=== PATIENT | female | born 1960 | race Caucasian/White ===

== ENCOUNTER → 2016-12-09 | Outpatient (CLI) | payer BC, OTHER ==
[~2016-12-09] VITALS: Ht 172.7 cm; Wt 57.6 kg
[~2016-12-09] MED LIST: ALEVE220 MG PO; CELEBREX 200 M200 MG PO; ESTRING1 EACH VG; GABAPENTIN100 MG PO; HYDROCODONE-AP1 EAC6 PO; LEVOTHYROXIN0.175 MG PO; LIDODERM 5%1 PATC1 TRANSDERM; METHADONE HCL5 MG PO; NEURONTIN 300300 M1 PO; NEURONTIN600 MG PO; NORCO 5-325 TA1 EACH PO; PENNSAID112 GM TP; TERBINAFINE HC250 MG PO
--- NOTE | ~2016-12-09 | HPC ---
[facility] [address] [place] [address] PAIN MANAGEMENT CONSULTATION Name: ANNEMARIE BARDALES Room #: REG RAJI Trammell#: [id number] Admission: 12/09/16 Attend Phys: Wolfgang Miller MD Discharge: Date of : 56 Report #: [id number] THIS REPORT FOR: //name// CC: Annemarie Bucio STACIE Miller DATE OF REGISTRATION: 12/09/2016. Followup visit for bilateral foot pain. HISTORY OF PRESENT ILLNESS: The patient returns to pain clinic today and was really unhappy that she felt that I did not taking her complaints of pain seriously at her last visit. I had indeed felt that her pain was fairly well controlled with some of her medicines. We had adjusted both her gabapentin and offered new medications Celebrex. She says the pain is now really affecting her. She has trouble going out and is becoming more and more withdrawn. She is asking for more aggressive treatments and what they may have to offer her. I spent 15 minutes today discussing spinal cord stimulation intrathecal pump. She certainly wants to avoid any distal surgery, which really probably, compounded or her increased her current pain. We discussed injections as possibility she has had multiple injections without response. I do not think this is in a position where peripheral nerve stimulation is even worth a consideration. She might be a candidate down the line for stem cell therapy if we can perfect that treatment down side risk that is quite low. We will discuss this further with my partner, Dr. Reeves and we are pursuing educational opportunities in this field. PHYSICAL EXAMINATION: GENERAL: She is tearful, angry and depressed. VITAL SIGNS: Blood pressure is 198/52, heart rate 68, respirations 14. EXTREMITIES: She works wearing articulating AFO on the right foot. Examination of the feet reveals a 5 inch scar along the plantar surface with tightness and scar tissue within the plantar fascia. There is tenderness overlying a dorsal scar as well and localized tenderness overlying the metatarsal phalangeal joint between the first and second toe. Review of the palpable mass, there was to scar tissue, which may be contributing to an inner digital nerve neuroma. IMPRESSION: 1. Chronic intractable foot pain related to neuropathy and a neuroma formation following multiple foot surgeries. 2. Management of high risk medication. After long discussion today, they have agreed to try her on methadone, which we have found helpful for many patients with neuropathic features. Examples of patient's with atypical facial pain with trigeminal neuralgia, postherpetic [address] [address] PAIN MANAGEMENT CONSULTATION Name: ANNEMARIE BARDALES Room #: REG [facility] Valeri#: [id number] Admission: 12/09/16 Attend Phys: Wolfgang Miller MD Discharge: Date of : 56 Report #: [id number] neuralgia as well as phantom limb pain, they were doing quite well on methadone at low dose. RECOMMENDATIONS: We will start the medication at 2.5 mg t.i.d. She can gradually that dose upwards by 2.5 mg per day every 3 days to a maximum of 5 mg t.i.d. before I see her back in the clinic in 2-3 weeks. We will consider injections at that time. Questions were answered, time spent with the patient 25 minutes. <ELECTRONICALLY SIGNED> By: Wolfgang Miller MD 12/09/16 1714 [id number] [id number] Wolfgang Miller MD /nt
[2016-12-09 12:28] VITALS: BP 98/52
== END | disposition home or self-care (01) ==
LOC: PAIN 07:00
DX: D36.13 Benign neoplasm of peripheral nerves and autonomic nervous system of lower limb, including hip (principal); M25.571 Pain in right ankle and joints of right foot; M25.572 Pain in left ankle and joints of left foot; G89.29 Other chronic pain; F11.20 Opioid dependence, uncomplicated; Z98.890 Other specified postprocedural states; Z88.1 Allergy status to other antibiotic agents

== ENCOUNTER → 2017-01-05 | Outpatient (CLI) | payer BC, OTHER ==
[~2017-01-05] VITALS: Ht 165.1 cm; Wt 57.6 kg
[2017-01-05 14:32] VITALS: BP 101/60
== END ==
LOC: PAIN 07:14
DX: Z76.0 Encounter for issue of repeat prescription (principal); M79.673 Pain in unspecified foot; M79.2 Neuralgia and neuritis, unspecified

== ENCOUNTER → 2017-02-28 | Outpatient (CLI) | payer BC, OTHER | LOC: PAIN 07:12 | DX: M79.672 Pain in left foot (principal); M79.671 Pain in right foot ==

== ENCOUNTER → 2017-06-06 | Outpatient (CLI) | payer BC, OTHER ==
[~2017-06-06] VITALS: Ht 165.1 cm; Wt 58.5 kg
--- NOTE | ~2017-06-06 | HPC ---
[facility] [place] [address] [place] [address] PAIN MANAGEMENT CONSULTATION Name: ANNEMARIE BARDALES Room #: REG RAJI Trammell#: [id number] Admission: 06/06/17 Attend Phys: Wolfgang Miller MD Discharge: Date of : 56 Report #: [id number] THIS REPORT FOR: //name// CC: Annemarie Bucio STACIE Miller DATE OF SERVICE: 06/06/2017 DATE OF REGISTRATION: 06/06/2017 Followup visit for chronic intractable foot pain. The patient returns to pain clinic today for renewal of her methadone. She has now been on methadone through our clinic since December. At that time, she was in a bit of crisis. We began titrated the dose upwards. Her current daily dose of methadone is 5 mg tablets taken 4 times daily. She generally takes 5 mg in the morning and noon and 10 mg in the evening. In addition, she is on gabapentin and I have allowed her to take 2 hydrocodone 5/325 per day for breakthrough pain under terms of our written opioid agreement. Today, I discussed the CDC guideline and she is currently on 90 morphine mg equivalents per day right at the opioid upper limit recommendation. She has recently undergone a buccal drug screen which was positive for methadone, gabapentin and hydrocodone 3 drugs are prescribed. There were no unusual findings. She is on time for all her visits. She safeguards her medication. She and her fiance of many years are planning on getting . She had some questions about some upcoming cosmetic surgery that she intends to have and I told her that I would supplement her current medication with a small amount of additional medicine to get her through surgery. This should be for no more than 3-7 days. She should continue her medication through surgery and we did discuss the possibility of the taper of her methadone even a few days before surgery by 25%-50% can have a very positive return on her postoperative pain. I gave her some instructions on how to do that. PHYSICAL EXAMINATION: She is pleasant, alert and oriented. Her blood pressure is 111/59, heart rate 67, BMI of 21.5. Her pain score is at 3/5. She wears bilateral AFO on the foot inside of her shoe to provide support. She has localized discomfort. IMPRESSION: 1. Chronic foot pain with peripheral neuropathy, status post multiple surgeries. 2. Management of high risk medication. [address] [address] PAIN MANAGEMENT CONSULTATION Name: ANNEMARIE BARDALES Room #: REG RAJI Trammell#: [id number] Admission: 06/06/17 Attend Phys: Wolfgang Miller MD Discharge: Date of : 56 Report #: [id number] PLAN: 1. Continue methadone 20 mg daily and hydrocodone 10 mg daily for breakthrough. 2. Review of opioid issues including addiction and dependence, the opioid crisis in the [place], CDC guidelines and our opioid agreement. 3. The patient had questions for her father who is concerned about her methadone wanted to know how long it would take for her to go off if she ever had to. We discussed that this could happen, although it will be a challenge, particularly in light of the fact that we would need another way to manage her pain, which has been so resistant over the years. I will continue to see her at 3-month intervals. By: [id number] Wolfgang Miller MD /nt
[2017-06-06 12:37] VITALS: BP 111/59
== END ==
LOC: PAIN 06:54
DX: M79.673 Pain in unspecified foot (principal); G62.9 Polyneuropathy, unspecified; Z98.890 Other specified postprocedural states; Z79.899 Other long term (current) drug therapy

== ENCOUNTER → 2017-09-08 | Outpatient (CLI) | payer OTHER ==
[~2017-09-08] VITALS: Ht 165.1 cm; Wt 58.2 kg
[~2017-09-08] MED LIST changes: +SYNTHROID175 MCG PO; +XANAX 0.25 MG0.25 MG PO
--- NOTE | ~2017-09-08 | HPC ---
[facility] [place] [place] [address] PAIN MANAGEMENT CONSULTATION Name: ANNEMARIE BARDALES Room #: REG RAJI Hooper.#: [id number] Admission: 09/08/17 Attend Phys: Wolfgang Miller MD Discharge: Date of : 56 Report #: [id number] THIS REPORT FOR: //name// CC: Annemarie Bucio STACIE Miller DATE OF SERVICE: 09/08/2017 Followup visit for intractable foot pain. The patient returns to pain clinic today doing well. She is currently on methadone taking four 5 mg tablets per day for a total of 20 mg. The use of an additional two 5 mg hydrocodone tablets per day for breakthrough pain will equate to a total of 90 morphine milligram equivalents. Again today, we reviewed the CDC guidelines. We reviewed her pain medication use and responsibilities under terms of our written agreement. I reviewed her buccal drug screen, which was last performed on 01/05/2017. A new drug screen will be performed within the year. Right now she is doing well. Her life is stable. She is getting soon to a long time partner. Her blood pressure is 107/66, heart rate 67, respirations 14. BMI is 21.3. She seems upbeat and positive. No evidence of depression. Her functional assessment tool is 18/70 showing a significant improvement over her initial presentation to the clinic. When I first saw her in 2013, her scores were in the range of 40-50. PHYSICAL EXAMINATION: She wears her articulating ankle braces. She walks with some antalgic features. IMPRESSION: 1. Chronic foot pain status post multiple surgeries with severe peripheral neuropathy. 2. Management of high risk medication under terms of written opioid agreement. Followup visit planned in my clinic in 3 months. <ELECTRONICALLY SIGNED> By: Wolfgang Miller MD 10/10/17 1408 1502 [id number] Wolfgang Miller MD /nt
[2017-09-08 14:21] VITALS: BP 107/66
== END ==
LOC: PAIN 09-05 09:10
DX: M79.673 Pain in unspecified foot (principal); G89.29 Other chronic pain; Z79.899 Other long term (current) drug therapy

== ENCOUNTER → 2017-12-15 | Outpatient (CLI) | payer OTHER ==
[~2017-12-15] VITALS: Ht 165.1 cm; Wt 57.0 kg
[~2017-12-15] MED LIST changes: -SYNTHROID175 MCG PO; -XANAX 0.25 MG0.25 MG PO
--- NOTE | ~2017-12-15 | HPC ---
[facility] [address] [place] [address] PAIN MANAGEMENT CONSULTATION Name: ANNEMARIE BARDALES Room #: REG RAJI Hooper.#: [id number] Admission: 12/15/17 Attend Phys: Wolfgang Miller MD Discharge: Date of : 56 Report #: [id number] THIS REPORT FOR: //name// CC: Annemarie Bucio Wolfgang Miller DATE OF SERVICE: 12/15/2017 Followup visit for management of chronic intractable foot pain with severe peripheral neuropathy. The patient is doing well. A year ago or more, we started her on methadone and she is currently taking 5 mg 4 times daily, 1 in the morning, 2 in the midday and one in the evening. With this, her pain is nicely controlled. She has no significant side effects. She is substantially better since we placed her on methadone and she has shown no misuse or abuse of medication. Her pain intensity is 3/10. She continues to work and has been able to do so much more effectively. She reports to me that prior to starting on methadone, she was self-medicating at the end of the day with alcohol because her pain was so severe. She is completely given up the use of alcohol as an analgesic, although she occasionally drinks socially. She is grateful for this. I had her complete the risk assessment tool and she is at low risk of addiction, although she was clearly concerned about the required need for self-medication prior to establishing methadone. She recently , in fact just 4 days ago. Now, she and her have blended family. She seems very happy. We completed a buccal drug screen within the last 12 months. No further testing is necessary. PHYSICAL EXAMINATION: GENERAL: Attractive female. VITAL SIGNS: Blood pressure is 107/66, heart rate 67. She is 5 feet 5 inches, 128 pounds with a BMI of 21.3. MUSCULOSKELETAL: She is wearing articulating AFO on the left foot. Both feet are tender to touch. Hyperalgesia is mild, given her pain score of 3/10. IMPRESSION: 1. Chronic foot pain status post multiple surgeries with severe peripheral neuropathy. 2. Management of high risk medication under terms of written opioid agreement. She is quite stable on her current dose of methadone at 20 mg per day. I will [facility] [address] [place] [address] PAIN MANAGEMENT CONSULTATION Name: ANNEMARIE BARDALES Room #: REG [facility].#: [id number] Admission: 12/15/17 Attend Phys: Wolfgang Miller MD Discharge: Date of : 56 Report #: [id number] allow her to utilize 2 hydrocodone 5/325 tablets for breakthrough and she continues on gabapentin 600 mg 4 times daily for a total of 2400 mg. She denies any significant side effects. Feels that her pain is well managed. I reviewed the CDC guidelines with her, the history of the drug crisis in [facility]. We talked about the difference between addiction and dependence and we discussed withdrawal. I calculated her MME using 4:1 for methadone and that does take her up pretty quickly to an MME per day of 90. It is my belief as well as the belief of other pain specialist that methadone when taking chronically is closer to 1:1 with morphine. I would equate her current dose to be closer to 30-40 MME per day. We discussed the challenges in finding prescribers at high dose opioids should our clinic not be able to provide that for her in the future. We will make efforts to titrate the lowest effective dose. Multiple questions were answered today. Total visit time 25 minutes. By: [id number] Wolfgang Miller MD /nt
[2017-12-15 10:11] VITALS: BP 121/64
== END ==
LOC: PAIN 06:46
DX: G62.9 Polyneuropathy, unspecified (principal); G89.4 Chronic pain syndrome; M79.671 Pain in right foot; Z79.891 Long term (current) use of opiate analgesic

== ENCOUNTER → 2018-05-29 | Outpatient (CLI) | payer OTHER ==
[~2018-05-29] VITALS: Ht 165.1 cm; Wt 59.0 kg
[~2018-05-29] MED LIST changes: +SYNTHROID175 MCG PO; +XANAX 0.25 MG0.25 MG PO
--- NOTE | ~2018-05-29 | HPC ---
[facility] [place] [address] PAIN MANAGEMENT CONSULTATION Name: BARDALESANNEMARIE MOSCOSO Room #: REG RAJI Hooper.#: [id number] Admission: 05/29/18 Attend Phys: Wolfgang Miller MD Discharge: Date of : 56 Report #: [id number] THIS REPORT FOR: //name// CC: Annemarie Bucio STACIE Miller DATE OF SERVICE: 05/29/2018 Followup visit for management of chronic intractable pain with opioid medication. The patient returns to pain clinic today for medication renewal. She is doing well on methadone 5 mg 2 tablets in morning, 1 at noon and 1 in the evening for a total of 20 mg. In addition, she uses hydrocodone 5/325. She denies any significant side effects. She has had a significant improvement in her quality of life since we started her on this medication. She is able to function very well without side effects. She still says pain is worse when she is walking on concrete. She continuously wears her articulating AFO. We discussed her MME. We now use 3:1 to calculate methadone, which drops her MME to 70 simply by calculation. We will not make any changes in her current medication. PHYSICAL EXAMINATION: She is pleasant and oriented. No signs of anxiety, depression or overmedication. Blood pressure today is 115/80, heart rate is 65. She has a BMI of 21. Bilateral foot tenderness overlying the scars from previous surgery. She is wearing a left-sided ankle foot orthotic. Her gait is antalgic. IMPRESSION: 1. Chronic foot pain status post multiple surgeries with peripheral neuropathy. 2. Management of opioid medications under terms of written opioid agreement. We reviewed the fact that opiate medications are being used to provide analgesia adequate to support activities of daily living, not attempting to achieve a specific pain score on the 0-10 Visual Analog Scale. The current opiate medications are providing sufficient analgesia to allow the patient to participate in activities of daily living. The patient is not exhibiting any aberrant behavior suggestive of drug diversion. The patient is not having any adverse reactions to medications. The patient is not suffering from daytime somnolence or mental acuity changes. The patient is managing opiate-induced constipation with appropriate leux-ene-kmuuava agents and dietary considerations. The patient was counseled on concern for caution with operating [address] [address] PAIN MANAGEMENT CONSULTATION Name: ANNEMARIE BARDALES Room #: REG [facility] Rufus.#: [id number] Admission: 05/29/18 Attend Phys: Wolfgang Miller MD Discharge: Date of : 56 Report #: [id number] a motor vehicle while using opiate medications. A physical exam was performed and the patient's functional status was evaluated. All patients with back pain were advised against the bed rest greater than 4 days and were advised to return to normal activities. Pain score assessment was noted and the treatment plan was reviewed with the patient. All current medications, both prescribed and OTC were reviewed and reconciled on the electronic medical record. Tobacco screening was accomplished and smoking cessation was advised when indicated. BMI was noted and diet/exercise modification was recommended for all patients following outside normal parameters. I reviewed with the patient today their responsibilities to safeguard prescription medications, reviewed their responsibility to utilize medications only as prescribed by the physician. They are to seek and receive pain medications only from 1 physician group ( [facility]). They are to use 1 pharmacy and keep the clinic informed if they change pharmacies. Their responsibilities include making followup visits in a timely fashion and to avoid abrupt discontinuation of medication usage. Their responsibilities further include bringing their medications (bottles from the pharmacy with residual pills) to the visit for possible confirmation of pill counts and the patient understands it is their responsibility to submit to random drug screens to ensure both that the medications prescribed are present, and that no other controlled substances are present. All prescriptions provided today were generated electronically. By: [id number] Wolfgang Miller MD /nt
[2018-05-29 14:23] VITALS: BP 105/47
== END ==
LOC: PAIN 00:35
DX: G89.4 Chronic pain syndrome (principal); M79.671 Pain in right foot; M79.672 Pain in left foot; G62.9 Polyneuropathy, unspecified; Z79.891 Long term (current) use of opiate analgesic

== ENCOUNTER → 2018-08-14 | Outpatient (CLI) | payer OTHER ==
[~2018-08-14] VITALS: Ht 165.1 cm; Wt 60.3 kg
[2018-08-14 12:32] VITALS: BP 99/48
--- NOTE | 2018-08-14 12:38 | NUR ---
Pain Clinic Assessment: 1. History of Osteoarthritis: Not Applicable History of Rheumatoid Arthritis: Not Applicable 2. Height: 5 ft. 5 in. 165.1 cm. Weight: 133.0 lb. oz. 60.328 kg. Patient's BMI: 22.1 3. Vital Signs: BP: 99/48 Pulse: 70 Resp: 12 Temp: 02 Sat: 97 ECG Mon: 4. Pain Intensity: 5-6 5. Fall Risk: Dizziness: N Needs help standing or walking: N Fallen in the last 3 months: N Fall risk comments: 6. Patient on Blood Thinner: None 7. History of Hypertension: N 8. Opioid Therapy greater than 6 weeks: Y Opiate Contract Signed: 09/08/17 9. Risk Assessment Tool Provided: low risk 10. Functional Assessment Tool: 11. Recreational Drug Use: Never Drug Type: Tobacco Use: Never Smoker Tobacco Type: Amount or Packs/day: How Many Years: Alcohol Use: Yes Frequency: Weekly Quant: WEEKEND
--- NOTE | 2018-08-15 07:17 | HPC ---
[facility] [address] [place] [address] PAIN MANAGEMENT CONSULTATION Name: BARDALESANNEMARIE CALDWELL Room #: REG RAJI Hooper.#: [id number] Admission: 08/14/18 Attend Phys: Juliette Ruiz Discharge: Date of : 56 Report #: [id number] THIS REPORT FOR: //name// CC: Juliette Ruiz Annemarie Bucio DATE OF SERVICE: 08/14/2018 CHIEF COMPLAINT: Chronic intractable pain in her bilateral feet. HISTORY OF PRESENT ILLNESS: The patient returns to the pain clinic today for medication renewal. She has done well on her current methadone dose for her bilateral foot pain. She takes 1 pill in the morning, 1 pill at midday and 2 tablets at bedtime of her methadone 5 mg tablets. She also takes hydrocodone about 2 times a day. She tells me that she has worse pain with walking on concrete especially if it is cold. She has sharp pain. She had 1 episode last week that her pain was so bad it brought her to her knees she tells me. Her average pain score is 5/6. She tells me she does not have any problems with constipation or daytime sleepiness. She would like a refill of her medications today. ALLERGIES: TETRACYCLINE. CURRENT LIST OF MEDICATIONS: Methadone 5 mg up to 4 tablets a day, hydrocodone 5/325 twice a day, gabapentin 600 mg 4 times a day, Xanax 0.25 daily, thyroid medicine 175 mcg a day. PQRS: 1. She does not have a history of rheumatoid or osteoarthritis. 2. Height is 5 feet 5 inches, weight is 133, BMI is 22. 3. Vital Signs: Blood pressure 99/48, pulse is 70, respirations 19, oxygen sat is 97%. 4. Pain score is 5-6/10. 5. Fall risk: Denies dizziness, does not need help walking or standing, has not fallen in the last 3 months. 6. The patient is not on any blood thinners and she does not take any hypertension medicines. 7. Opioid therapy is greater than 6 weeks, therefore, an opioid signed contract is on the chart. 8. Her risk assessment tool is low. Her functional assessment is 18/70. 9. Recreational drug use she denies. She is not a smoker and occasionally drinks alcohol. We did check the prescription monitoring system on this patient. She is filling appropriately from Dr. Wolfgang Miller. The patient also has a urine drug screen on the chart, though it is more than a year old, so we will recheck that drug screen again today. [address] [address] PAIN MANAGEMENT CONSULTATION Name: ANNEMARIE BARDALES [facility] [id number] Admission: 08/14/18 Attend Phys: Juliette Ruiz Discharge: Date of : 56 Report #: [id number] PHYSICAL EXAMINATION: GENERAL: This is a pleasant 57-year-old female who is well nourished. She appears her stated age. She is alert and orientated and her affect is appropriate. HEENT: Normocephalic, atraumatic. Extraocular eye muscles are intact. Mucous membranes are moist. Her hearing is adequate. MUSCULOSKELETAL: Walks with an antalgic gait. She has bilateral foot tenderness. She does wear a left-sided ankle foot orthotic today. Her general muscle strength in her lower extremities is judged to be 5/5 in all of her major muscle groups. ASSESSMENT: 1. Chronic foot pain status post multiple surgeries with peripheral neuropathy. 2. Management of opioid medicines under terms of written opioid agreement. We reviewed the fact that opiate medications are being used to provide analgesia adequate to support activities of daily living, not attempting to achieve a specific pain score on the 0-10 Visual Analog Scale. The current opiate medications are providing sufficient analgesia to allow the patient to participate in activities of daily living. The patient is not exhibiting any aberrant behavior suggestive of drug diversion. The patient is not having any adverse reactions to medications. The patient is not suffering from daytime somnolence or mental acuity changes. The patient is managing opiate-induced constipation with appropriate xsjw-bdl-qidtrqe agents and dietary considerations. The patient was counseled on concern for caution with operating a motor vehicle while using opiate medications. A physical exam was performed and the patient's functional status was evaluated. All patients with back pain were advised against the bed rest greater than 4 days and were advised to return to normal activities. Pain score assessment was noted and the treatment plan was reviewed with the patient. All current medications, both prescribed and OTC were reviewed and reconciled on the electronic medical record. Tobacco screening was accomplished and smoking cessation was advised when indicated. BMI was noted and diet/exercise modification was recommended for all patients following outside normal parameters. I reviewed with the patient today their responsibilities to safeguard prescription medications, reviewed their responsibility to utilize medications only as prescribed by the physician. They are to seek and receive pain medications only from 1 physician group ([facility]). They are to use 1 pharmacy and keep the clinic informed if they change pharmacies. Their responsibilities include making followup visits in a timely fashion and to avoid abrupt discontinuation of medication usage. Their responsibilities further include bringing their medications (bottles from the pharmacy with residual pills) to the visit for possible confirmation of pill counts and the patient [address] [address] PAIN MANAGEMENT CONSULTATION Name: ANNEMARIE BARDALES Room #: REG RAJI Hooper#: [id number] Admission: 08/14/18 Attend Phys: Juliette Ruiz Discharge: Date of : 56 Report #: [id number] understands it is their responsibility to submit to random drug screens to ensure both that the medications prescribed are present, and that no other controlled substances are present. All prescriptions provided today were generated electronically. PLAN: 1. We discussed treatment options with the patient today. Her current MME dose per the CDC guidelines his 70. We did not make any changes in her medications today, so she will continue at that level. Therefore, due to the clinic guidelines, we will give her 3 months of medications. Scripts given today for methadone 5 mg, quantity 120, for release today, 4 and 8-week. Second medication is hydrocodone 5/325 b.i.d., #60 for release today, 4-week and 8-week. Final medication, gabapentin 600 mg 4 times a day, #120, with 2 additional refills. 2. The patient submitted a urine drug screen today since it had been more than a year since her last sample was checked randomly. The patient was seen in collaboration today with Dr. Wolfgang Miller. <ELECTRONICALLY SIGNED> By: Juliette Ruiz 08/15/18 0717 1319 [id number] Juliette Ruiz /nt
== END ==
LOC: PAIN 07:14
DX: M79.672 Pain in left foot (principal); M79.671 Pain in right foot; G89.4 Chronic pain syndrome; G62.9 Polyneuropathy, unspecified; Z79.891 Long term (current) use of opiate analgesic; Z79.899 Other long term (current) drug therapy; Z98.890 Other specified postprocedural states

== ENCOUNTER → 2018-11-16 | Outpatient (CLI) | payer OTHER ==
[~2018-11-16] VITALS: Ht 165.1 cm; Wt 58.9 kg
[~2018-11-16] MED LIST changes: +CELEBREX 200 M200 M1 PO
[2018-11-16 09:58] VITALS: BP 113/62
--- NOTE | 2018-11-16 10:04 | NUR ---
Pain Clinic Assessment: 1. History of Osteoarthritis: Not Applicable History of Rheumatoid Arthritis: Not Applicable 2. Height: 5 ft. 5 in. 165.1 cm. Weight: 129.8 lb. oz. 58.877 kg. Patient's BMI: 21.6 3. Vital Signs: BP: 113/62 Pulse: 72 Resp: 16 Temp: 02 Sat: 98 ECG Mon: 4. Pain Intensity: 7-8 5. Fall Risk: Dizziness: N Needs help standing or walking: Y Fallen in the last 3 months: N Fall risk comments: 6. Patient on Blood Thinner: None 7. History of Hypertension: N 8. Opioid Therapy greater than 6 weeks: Y Opiate Contract Signed: 09/08/17 9. Risk Assessment Tool Provided: low risk 10. Functional Assessment Tool: 11. Recreational Drug Use: Never Drug Type: Tobacco Use: Never Smoker Tobacco Type: Amount or Packs/day: How Many Years: Alcohol Use: Yes Frequency: Quant:
--- NOTE | 2018-11-17 08:21 | HPC ---
[facility] [place] [address] [address] PAIN MANAGEMENT CONSULTATION Name: BARDALESANNEMARIE CALDWELL Room #: REG RAJI Trammell#: [id number] Admission: 11/16/18 ������������������ Attend Phys: Juliette Ruiz Discharge: ������������������ Date of : 56 Report #: [id number] THIS REPORT FOR: //name// CC: Juliette Ruiz Annemarie Bucio DATE OF SERVICE: 11/16/2018 CHIEF COMPLAINT: Chronic intractable bilateral foot pain. HISTORY OF PRESENT ILLNESS: This is a pleasant 58-year-old female who returns to the pain clinic today for medication renewal. She is quite tearful today upon entering the room. 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 This has aggravated her bilateral foot pain. She tells me that her left foot is worse than her right. She is wearing a brace today. Her pain today is a 7-8/10, mostly a burning pain on the bottom of her foot and on the inner part of her ankles. She said walking up and down the stairs and walking on concrete has flared it up. Usually, she can relieve some of her pain with medication as well as ice and resting it, but she has not been able to do that lately. She would like a refill of her medications today. ALLERGIES: TETRACYCLINE. CURRENT MEDICATIONS: Gabapentin 600 mg 4 times a day, methadone 5 mg 3 times a day, 1 tablet in the morning, one midday and 2 at night, hydrocodone 5/325 every 8 hours, alprazolam as needed, Synthroid 175 mcg daily. PQRS: 1. She does not have any osteoarthritis or rheumatoid arthritis. 2. Height is 5 feet 5 inches, weight is 129, BMI is 21. 3. VITAL SIGNS: 113/62, pulse 72, respirations 16, oxygen sat is 98. 4. Pain score 7-8. 5. Denies dizziness. Does need help walking and standing and has not fallen in the last 3 months. 6. She does wear a brace on her ankle today. 7. She is not on any blood thinners, does not take any medicine for hypertension. 8. Opioid therapy is greater than 6 weeks; therefore, an opioid signed contract is on the chart. 9. Her risk assessment tool is low. Her functional assessment is 18/70. 10. Recreational drug use, she denies. She is not a smoker and does drink some alcohol. We did check the prescription monitoring system. The patient is filling appropriately for her medications. There is a drug screen that we performed on [address] [address] PAIN MANAGEMENT CONSULTATION Name: ANNEMARIE BARDALES Room #: REG RAJI Trammell#: [id number] Admission: 11/16/18 ������������������ Attend Phys: Juliette Ruiz Discharge: ������������������ Date of : 56 Report #: [id number] her in the last 3 months that is appropriate and she tells me she does safeguard her medications. PHYSICAL EXAMINATION: GENERAL: This is a pleasant 58-year-old female who is well-nourished, appears her stated age. She is alert and orientated and her affect is appropriate. HEENT: Normocephalic, atraumatic. Extraocular eye muscles are intact. Mucous membranes are moist and hearing is adequate. MUSCULOSKELETAL: She walks with an antalgic gait. She wears an AFO continuously on her left ankle. Her general muscle strength in her lower extremities judged to be 5/5 in all major muscle groups, complains of significant burning in the bottom of her feet, bilateral. IMPRESSION: 1. Chronic foot pain status post multiple surgeries with peripheral neuropathy. 2. Management of opioid medications under terms of written opioid agreement. We reviewed the fact that opiate medications are being used to provide analgesia adequate to support activities of daily living, not attempting to achieve a specific pain score on the 0-10 Visual Analog Scale. The current opiate medications are providing sufficient analgesia to allow the patient to participate in activities of daily living. The patient is not exhibiting any aberrant behavior suggestive of drug diversion. The patient is not having any adverse reactions to medications. The patient is not suffering from daytime somnolence or mental acuity changes. The patient is managing opiate-induced constipation with appropriate sgcn-zip-enrpzzm agents and dietary considerations. The patient was counseled on concern for caution with operating a motor vehicle while using opiate medications. A physical exam was performed and the patient's functional status was evaluated. All patients with back pain were advised against the bed rest greater than 4 days and were advised to return to normal activities. Pain score assessment was noted and the treatment plan was reviewed with the patient. All current medications, both prescribed and OTC were reviewed and reconciled on the electronic medical record. Tobacco screening was accomplished and smoking cessation was advised when indicated. BMI was noted and diet/exercise modification was recommended for all patients following outside normal parameters. I reviewed with the patient today their responsibilities to safeguard prescription medications, reviewed their responsibility to utilize medications only as prescribed by the physician. They are to seek and receive pain medications only from 1 physician group ([facility]). They are to use 1 pharmacy and keep the clinic informed if they change pharmacies. Their responsibilities include making followup visits in a timely fashion and to avoid abrupt discontinuation of medication usage. Their responsibilities further [address] [address] PAIN MANAGEMENT CONSULTATION Name: ANNEMARIE BARADLES Room #: REG [facility]#: [id number] Admission: 11/16/18 ������������������ Attend Phys: Juliette Ruiz Discharge: ������������������ Date of : 56 Report #: [id number] include bringing their medications (bottles from the pharmacy with residual pills) to the visit for possible confirmation of pill counts and the patient understands it is their responsibility to submit to random drug screens to ensure both that the medications prescribed are present, and that no other controlled substances are present. All prescriptions provided today were generated electronically. PLAN: 1. We discussed treatment options with the patient today. Dr. Miller was present for part of this discussion. She is having to clean a very dirty rental property and has been working very hard which has increased her pain. She has not been able to rest for days in between all of her heavy work; therefore, her pain level has increased. We discussed anti-inflammatory medications today with this patient instead of increasing any narcotics. We tried to keep the patient at the lowest most effective dose. The patient is not currently on an anti-inflammatory. We will give her a trial of Celebrex 200 mg once a day, script given for #30 with 2 additional refills. The patient is to take this during her flares in her times when she is working hard and then to try and not take it when she is stable with her pain control. The patient verbalized understanding. We did talk about the risks and benefits and about stomach issues with this medication. 2. Scripts given today for [place] 5/325, #60 for today, 4 and 8-week release and methadone 5 mg, #120, take one in the morning, one midday and 2 at night to release today, 4 and 8-week release. 3.The patient will return in 3 months' time period for medication refills. The patient was seen today with Dr. Miller as stated above and who also collaborated care. ��������������������������������������������� <ELECTRONICALLY SIGNED> ���������������������������������������� By: Juliette Ruiz ��������������������������������������������� 11/17/18 0821 [id number] Juliette Ruiz /jonathan
== END ==
LOC: PAIN 06:48
DX: M79.672 Pain in left foot (principal); M79.671 Pain in right foot; G89.4 Chronic pain syndrome; Z88.8 Allergy status to other drugs, medicaments and biological substances; Z79.899 Other long term (current) drug therapy; Z98.890 Other specified postprocedural states

== ENCOUNTER → 2019-02-19 | Outpatient (CLI) | payer OTHER ==
[~2019-02-19] VITALS: Ht 165.1 cm; Wt 59.0 kg
[~2019-02-19] MED LIST changes: +NORCO 5-325 TA1 EAC1 PO
[2019-02-19 13:52] VITALS: BP 113/68
--- NOTE | 2019-02-19 13:57 | NUR ---
Pain Clinic Assessment: 1. History of Osteoarthritis: Not Applicable History of Rheumatoid Arthritis: Not Applicable 2. Height: 5 ft. 5 in. 165.1 cm. Weight: 130.0 lb. oz. 58.968 kg. Patient's BMI: 21.6 3. Vital Signs: BP: 113/68 Pulse: 70 Resp: 14 Temp: 02 Sat: 97 ECG Mon: 4. Pain Intensity: 4-5 5. Fall Risk: Dizziness: N Needs help standing or walking: N Fallen in the last 3 months: N Fall risk comments: 6. Patient on Blood Thinner: None 7. History of Hypertension: N 8. Opioid Therapy greater than 6 weeks: Y Opiate Contract Signed: 09/08/17 9. Risk Assessment Tool Provided: low risk 10. Functional Assessment Tool: 11. Recreational Drug Use: Never Drug Type: Tobacco Use: Never Smoker Tobacco Type: Amount or Packs/day: How Many Years: Alcohol Use: Yes Frequency: Weekly Quant: 2
--- NOTE | 2019-02-20 12:35 | HPC ---
[facility] [address] [place] [address] PAIN MANAGEMENT CONSULTATION Name: ANNEMARIE BARDALES Room #: REG RAJI Trammell#: [id number] Admission: 02/19/19 Attend Phys: Juliette Ruiz Discharge: Date of : 56 Report #: [id number] THIS REPORT FOR: //name// CC: Juliette Ruiz Annemarie Bucio DATE OF SERVICE: 02/19/2019 CHIEF COMPLAINT: Chronic intractable bilateral foot pain. HISTORY OF PRESENT ILLNESS: This is a very pleasant 58-year-old female who returns to the pain clinic today for refill of her medications that she uses to help treat her ongoing bilateral foot pain. She reports her pain score is a 4-5 today, which is a burning, sharp pain in her feet. 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 She tells us that it has decreased since she has started her Celebrex and continues on her methadone and hydrocodone. The patient reports no constipation issues and no daytime somnolence issues. ALLERGIES: TETRACYCLINE. CURRENT LIST OF MEDICATIONS: Methadone 5 mg 1 in the morning, 1 midday, 2 at bedtime, hydrocodone 5/325 twice a day, gabapentin 600 mg 4 times a day, Celebrex 200 mg daily, Xanax p.r.n., Synthroid 175 mcg daily. PQRS: 1. She does not have osteoarthritis or rheumatoid arthritis. 2. Height is 5 feet 5 inches, weight is 130, BMI is 21. 3. Vital signs: Blood pressure 113/68, pulse is 70, respirations 14, oxygen sat is 97. 4. Pain score is 4-5. 5. Denies dizziness, does not need help walking or standing, has not fallen in the last 3 months, but she does have an ankle brace on. 6. The patient denies any blood thinners, does not take hypertension medicines. 7. Opioid therapy is greater than 6 weeks; therefore, an opioid signed contract is on the chart. 8. Risk assessment tool is low. Functional assessment is . 9. Recreational drug use, she denies. She is not a smoker and occasionally drinks alcohol. According to the prescription monitoring system, the patient is filling appropriately for her medications from Dr. Wolfgang Miller. She is due for those medications today. There is a recent drug screen on the chart that is [address] [address] PAIN MANAGEMENT CONSULTATION Name: ANNEMARIE BARDALES Room #: REG [facility] Valeri#: [id number] Admission: 02/19/19 Attend Phys: Juliette Ruiz Discharge: Date of : 56 Report #: [id number] appropriate for her medications as well. PHYSICAL EXAMINATION: GENERAL: This is a very pleasant 58-year-old female who appears her stated age, placing her current pain score at 4-5. Her affect is appropriate. HEENT: Normocephalic, atraumatic. Extraocular eye muscles are intact. Mucous membranes are moist. MUSCULOSKELETAL: She walks with an antalgic gait, wearing an AFO on her left ankle. Complains of burning in the bottom of her feet bilaterally. Her upper and lower extremity strength judged to be 5/5 in all major muscle groups. IMPRESSION: 1. Chronic foot pain status post multiple surgeries with peripheral neuropathy. 2. Management of opioid medications under terms of written opioid agreement. We reviewed the fact that opiate medications are being used to provide analgesia adequate to support activities of daily living, not attempting to achieve a specific pain score on the 0-10 Visual Analog Scale. The current opiate medications are providing sufficient analgesia to allow the patient to participate in activities of daily living. The patient is not exhibiting any aberrant behavior suggestive of drug diversion. The patient is not having any adverse reactions to medications. The patient is not suffering from daytime somnolence or mental acuity changes. The patient is managing opiate-induced constipation with appropriate fqwc-ekq-npljvqm agents and dietary considerations. The patient was counseled on concern for caution with operating a motor vehicle while using opiate medications. A physical exam was performed and the patient's functional status was evaluated. All patients with back pain were advised against the bed rest greater than 4 days and were advised to return to normal activities. Pain score assessment was noted and the treatment plan was reviewed with the patient. All current medications, both prescribed and OTC were reviewed and reconciled on the electronic medical record. Tobacco screening was accomplished and smoking cessation was advised when indicated. BMI was noted and diet/exercise modification was recommended for all patients following outside normal parameters. I reviewed with the patient today their responsibilities to safeguard prescription medications, reviewed their responsibility to utilize medications only as prescribed by the physician. They are to seek and receive pain medications only from 1 physician group ([facility]). They are to use 1 pharmacy and keep the clinic informed if they change pharmacies. Their responsibilities include making followup visits in a timely fashion and to avoid abrupt discontinuation of medication usage. Their responsibilities further include bringing their medications (bottles from the pharmacy with residual pills) to the visit for possible confirmation of pill counts and the patient [address] [address] PAIN MANAGEMENT CONSULTATION Name: ANNEMARIE BARDALES Room #: REG [facility].#: [id number] Admission: 02/19/19 Attend Phys: Juliette Ruiz Discharge: Date of : 56 Report #: [id number] understands it is their responsibility to submit to random drug screens to ensure both that the medications prescribed are present, and that no other controlled substances are present. All prescriptions provided today were generated electronically. PLAN: 1. We discussed treatment options with the patient today. The patient is doing quite well on her current medication regimen and requesting refills. Scripts given today for gabapentin 600 mg, #120 with 2 refills, Celebrex 200 mg, #30 with 2 refills, methadone 5 mg 1 in the morning, 1 midday, 2 at night, #120 for release today, 4-week and 8-week, and hydrocodone 5/325, #60 to release today, 4-week and 8-week. 2. The patient expressed concerns about possibly changing insurance and wondering if Dr. Wolfgang Miller is on some very specific plans. We gave the patient the doctor's billing office to see when she is shopping for new insurance plans that she could check with his billing to make sure that he is covered on those plans. 3. Dr. Wolfgang Miller did see the patient today and collaborated care. The patient will return in 3 months. <ELECTRONICALLY SIGNED> By: Juliette Ruiz 02/20/19 1235 1533 [facility] Juliette Ruiz jonathan
== END ==
LOC: PAIN 07:02
DX: G62.9 Polyneuropathy, unspecified (principal); M79.671 Pain in right foot; M79.672 Pain in left foot; Z79.891 Long term (current) use of opiate analgesic

== ENCOUNTER → 2019-04-17 | Outpatient (CLI) | payer OTHER ==
[~2019-04-17] MED LIST changes: +GABAPENTIN600 M1 PO
== END ==
LOC: RAD 08:51
DX: R05 Cough (principal); R92.1 Mammographic calcification found on diagnostic imaging of breast

== ENCOUNTER → 2019-05-17 | Outpatient (CLI) | payer OTHER ==
[~2019-05-17] VITALS: Ht 165.1 cm; Wt 58.5 kg
[2019-05-17 12:51] VITALS: BP 109/63
--- NOTE | 2019-05-17 13:05 | NUR ---
Pain Clinic Assessment: 1. History of Osteoarthritis: Not Applicable History of Rheumatoid Arthritis: Not Applicable 2. Height: 5 ft. 5 in. 165.1 cm. Weight: 129.0 lb. oz. 58.514 kg. Patient's BMI: 21.5 3. Vital Signs: BP: 109/63 Pulse: 68 Resp: 16 Temp: 02 Sat: 99 ECG Mon: 4. Pain Intensity: 4-5 5. Fall Risk: Dizziness: N Needs help standing or walking: N Fallen in the last 3 months: N Fall risk comments: 6. Patient on Blood Thinner: None 7. History of Hypertension: N 8. Opioid Therapy greater than 6 weeks: Y Opiate Contract Signed: 09/08/17 9. Risk Assessment Tool Provided: MOD 10. Functional Assessment Tool: 11. Recreational Drug Use: Never Drug Type: Tobacco Use: Never Smoker Tobacco Type: Amount or Packs/day: How Many Years: Alcohol Use: Yes Frequency: Weekly Quant: 2 DRINKS ON WEEKENDS
--- NOTE | 2019-05-18 10:02 | HPC ---
[facility] [place] [address] PAIN MANAGEMENT CONSULTATION Name: ANNEMARIE BARDALES Room #: REG RAJI Hooper.#: [id number] Admission: 05/17/19 Attend Phys: Juliette Ruiz Discharge: Date of : 56 Report #: [id number] THIS REPORT FOR: //name// CC: Juliette Ruiz Annemarie Wood Fortunato Miller MD DATE OF SERVICE: 05/17/2019 CHIEF COMPLAINT: Chronic intractable bilateral foot pain. HISTORY OF PRESENT ILLNESS: This is a 58-year-old female who returns to the pain clinic today for refill of her medications for her ongoing bilateral foot pain. Today, she rates her pain a 4/5 mostly in her right foot. It is a sharp, burning pressure that is worse with movement and walking. She is wearing her right foot brace reporting that it is rubbing in a certain area, causing some increased pain there. 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 She denies any problems with daytime sleepiness or constipation issues. Today, she would like refills of her methadone and hydrocodone. ALLERGIES: TETRACYCLINE. CURRENT LIST OF MEDICINES: Celebrex 200 mg daily, gabapentin 600 mg q.i.d., methadone 5 mg tablets 4 a day, hydrocodone 5/325 p.r.n., Xanax 0.25 mg daily p.r.n. and Synthroid 175 mcg daily. PQRS: 1. She denies any osteo or rheumatoid arthritis. 2. Height is 5 feet 5 inches, weight is 129, BMI is 21. 3. Vital signs 109/63, pulse is 68, respirations 16, oxygen sat is 99. 4. Pain score is 4-5. 5. Denies dizziness, does not need help walking, has not fallen in the last 3 months. 6. She is not on any blood thinners or medicine for hypertension. 7. Opioid therapy is greater than 6 weeks; therefore, an opioid signed contract is on the chart. Her risk assessment is moderate. Functional assessment is 33/70. 8. Recreational drug use, she denies. She is not a smoker and occasionally drinks alcohol. According to the prescription monitoring system, the patient is filling appropriately for her opioids in a timely fashion. She does occasionally takes alprazolam very sparingly for sleep, though no fills of that medicine for the past several months. She tells me she safeguards her meds at all times. There [address] [address] PAIN MANAGEMENT CONSULTATION Name: ANNEMARIE BARDALES [facility] [id number] Admission: 05/17/19 Attend Phys: Juliette Ruiz Discharge: Date of : 56 Report #: [id number] is a recent drug screen on the chart that is appropriate for her medicines as well. PHYSICAL EXAMINATION: GENERAL: This is a very pleasant 58-year-old female who appears her stated age, placing her current pain score today at 4/5. She is a good historian. HEENT: Normocephalic, atraumatic. Extraocular eye muscles are intact. Mucous membranes are moist. MUSCULOSKELETAL: She complains of pressure on her lateral aspect of her right foot from her AFO that she is wearing today. No redness or swelling noted. She walks with an antalgic gait. Her upper and lower extremity strength judged to be 5/5 in all major muscle groups. IMPRESSION: 1. Chronic foot pain bilaterally, status post multiple surgeries with peripheral neuropathy. 2. Management of opioid medications under terms of written opioid agreement. We reviewed the fact that opiate medications are being used to provide analgesia adequate to support activities of daily living, not attempting to achieve a specific pain score on the 0-10 Visual Analog Scale. The current opiate medications are providing sufficient analgesia to allow the patient to participate in activities of daily living. The patient is not exhibiting any aberrant behavior suggestive of drug diversion. The patient is not having any adverse reactions to medications. The patient is not suffering from daytime somnolence or mental acuity changes. The patient is managing opiate-induced constipation with appropriate fokk-nhk-hxyntyz agents and dietary considerations. The patient was counseled on concern for caution with operating a motor vehicle while using opiate medications. PLAN: 1. We discussed treatment options with the patient today. The patient feels that her brace is rubbing on her lateral aspect of her right foot. I encouraged her to contact the brace pick pack worker to see if they can alter her orthotic in some way to help prevent this soreness. I explained to her, we are trying to prevent any skin breakdown that may lead to sores. She verbalizes understanding. They have refitted her brace in the past. She will contact them. 2. 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 We will refill her methadone 5 mg 1 in the morning, 1 midday, 2 at night for today, 4-week and 8-week script that is set electronically as well as hydrocodone 5/325, #60. According to the CDC, her morphine mEq are 60 for MME per day. 3. We also refilled her Celebrex and gabapentin for 3 months. They were sent electronically as well. [address] [address] PAIN MANAGEMENT CONSULTATION Name: ANNEMARIE BARDALES Room #: [facility] RAJI Trammell#: [id number] Admission: 05/17/19 Attend Phys: Juliette Ruiz Discharge: Date of : 56 Report #: [id number] 4. The patient is seen in collaboration with Dr. Wolfgang Miller who did see the patient as well today. <ELECTRONICALLY SIGNED> By: Juliette Ruiz 05/18/19 1002 1457 [id number] Juliette Ruiz /nt
== END ==
LOC: PAIN 07:01
DX: M25.571 Pain in right ankle and joints of right foot (principal); M25.572 Pain in left ankle and joints of left foot; Z79.891 Long term (current) use of opiate analgesic

== ENCOUNTER → 2019-08-23 | Outpatient (CLI) | payer OTHER ==
[~2019-08-23] VITALS: Ht 165.1 cm; Wt 57.7 kg
[~2019-08-23] MED LIST changes: +OMEPRAZOLE40 MG PO
[2019-08-23 09:00] VITALS: BP 112/76
--- NOTE | 2019-08-23 09:05 | NUR ---
Pain Clinic Assessment: 1. History of Osteoarthritis: HANDS History of Rheumatoid Arthritis: Not Applicable 2. Height: 5 ft. 5 in. 165.1 cm. Weight: 127.2 lb. oz. 57.697 kg. Patient's BMI: 21.2 3. Vital Signs: BP: 112/76 Pulse: 92 Resp: 18 Temp: 02 Sat: 99 ECG Mon: 4. Pain Intensity: 5-6 5. Fall Risk: Dizziness: N Needs help standing or walking: N Fallen in the last 3 months: N Fall risk comments: 6. Patient on Blood Thinner: None 7. History of Hypertension: N 8. Opioid Therapy greater than 6 weeks: Y Opiate Contract Signed: 09/08/17 9. Risk Assessment Tool Provided: MOD 10. Functional Assessment Tool: 11. Recreational Drug Use: Never Drug Type: Tobacco Use: Never Smoker Tobacco Type: Amount or Packs/day: How Many Years: Alcohol Use: Yes Frequency: Weekly Quant: 2
--- NOTE | 2019-08-23 16:14 | HPC ---
[facility] [place] [address] PAIN MANAGEMENT CONSULTATION Name: ANNEMARIE BARDALES Room #: REG RAJI Hooper.#: [id number] Admission: 08/23/19 Attend Phys: Juliette Ruiz Discharge: Date of : 56 Report #: [id number] THIS REPORT FOR: cc: Annemarie Bucio DNP, Mary E. DNP Hocker, Amanda CNS ~ THIS REPORT FOR: //name// CC: Juliette Bucio DATE OF SERVICE: 08/23/2019 CHIEF COMPLAINT: Chronic intractable bilateral foot pain. HISTORY OF PRESENT ILLNESS: This is a very pleasant 58-year-old female who returns to the clinic today for refill of her medications that she uses to help treat her ongoing foot pain. She reports that her right foot is worse than the left, rating her pain score of 5-6/10 today. The pain is increased with movement, walking and standing. She has been very active redoing a rental house. She said at night she has had increased heel pain. She has been rolling a towel and keeping it off the bed and that has been beneficial. She denies any problems with constipation or daytime sleepiness. Today, she would like refills of all of her medications. ALLERGIES: TETRACYCLINE. CURRENT LIST OF MEDICATIONS: Omeprazole, methadone 5 mg 1 in the morning, 1 midday, two at night; hydrocodone 5/325 p.r.n., gabapentin 600 mg 4 times a day, Celebrex 200 mg daily, Xanax 0.25 mg p.r.n., and Synthroid. PQRS: 1. She has osteoarthritis in her hands. Denies any rheumatoid arthritis. 2. Height is 5 feet 5 inches, weight is 127, BMI is 21. 3. Vital signs 112/76, pulse is 92, respirations 18, oxygen sat is 99. 4. Pain score is 5-6. 5. Denies dizziness, does not need help walking or standing, has not fallen in the last 3 months. 6. The patient is not on any blood thinners or medicines for hypertension. 7. Opioid therapy is greater than 6 weeks; therefore, an opioid signed contract is on the chart. Risk assessment is moderate. Functional assessment is . 8. Recreational drug use, she denies. She is not a smoker and does drink alcohol. According to the prescription monitoring system, the patient is filling appropriately for her medications. She is slightly past due to fill those [facility] [address] [place] [address] PAIN MANAGEMENT CONSULTATION Name: ANNEMARIE BARDALES Room #: REG CLI Sergey#: [id number] Admission: 08/23/19 Attend Phys: Juliette Ruiz Discharge: Date of : 56 Report #: [id number] today. According to the CDC guidelines, her morphine mEq per day is 60. There is a recent drug screen on the chart and we will repeat that at her next visit. PHYSICAL EXAMINATION: GENERAL: This is a pleasant 58-year-old female who appears her stated age, placing her pain score at 5-6. She is alert and orientated. HEENT: Normocephalic, atraumatic. Extraocular eye muscles are intact. Mucous membranes are moist. MUSCULOSKELETAL: She has pain and tenderness on her right foot greater than the left. No swelling and no edema. She is wearing a brace and AFO as well. She walks with an antalgic gait. Her lower extremity strength judged to be 5/5 in all major muscle groups. She complains of increased burning at her heel on her right foot. IMPRESSION: 1. Chronic right foot pain bilaterally, status post multiple surgeries with peripheral neuropathy. 2. Management of opioid medications under terms of written opioid agreement. We reviewed the fact that opiate medications are being used to provide analgesia adequate to support activities of daily living, not attempting to achieve a specific pain score on the 0-10 Visual Analog Scale. The current opiate medications are providing sufficient analgesia to allow the patient to participate in activities of daily living. The patient is not exhibiting any aberrant behavior suggestive of drug diversion. The patient is not having any adverse reactions to medications. The patient is not suffering from daytime somnolence or mental acuity changes. The patient is managing opiate-induced constipation with appropriate rdra-msq-ryilrzc agents and dietary considerations. The patient was counseled on concern for caution with operating a motor vehicle while using opiate medications. A physical exam was performed and the patient's functional status was evaluated. All patients with back pain were advised against the bed rest greater than 4 days and were advised to return to normal activities. Pain score assessment was noted and the treatment plan was reviewed with the patient. All current medications, both prescribed and OTC were reviewed and reconciled on the electronic medical record. Tobacco screening was accomplished and smoking cessation was advised when indicated. BMI was noted and diet/exercise modification was recommended for all patients following outside normal parameters. I reviewed with the patient today their responsibilities to safeguard prescription medications, reviewed their responsibility to utilize medications only as prescribed by the physician. They are to seek and receive pain medications only from 1 physician group ([facility]). They are to use 1 pharmacy and keep the clinic informed if they change pharmacies. Their [address] [address] PAIN MANAGEMENT CONSULTATION Name: ANNEMARIE BARDALES Room #: REG RAJI Trammell#: [id number] Admission: 08/23/19 Attend Phys: Juliette Ruiz Discharge: Date of : 56 Report #: [id number] responsibilities include making followup visits in a timely fashion and to avoid abrupt discontinuation of medication usage. Their responsibilities further include bringing their medications (bottles from the pharmacy with residual pills) to the visit for possible confirmation of pill counts and the patient understands it is their responsibility to submit to random drug screens to ensure both that the medications prescribed are present, and that no other controlled substances are present. All prescriptions provided today were generated electronically. PLAN: 1. We discussed treatment options with the patient today. The patient feels that her medications are quite beneficial in controlling her pain. She is redoing a rental house that on some days, her pain has increased. She is wondering about increasing her Celebrex to 2 pills a day. I explained the risks and complications of too much antiinflammatory medications. The patient is not having any GI issues currently, but I explained that we are not able to increase her Celebrex any higher. I encouraged her to take extra strength Tylenol if she needs to 1-2 pills a day on those more painful days along with her current medication regimen. This will keep her at 2000 mg or less of her Tylenol. The patient verbalizes understanding. 2. We will have Dr. Wolfgang Miller who collaborated care, send her methadone 5 mg tablets, #120 for today for an 8-week release as well as her hydrocodone 5/325, #60 for 3 months electronically to her [facility] pharmacy. 3. I have sent the gabapentin 600 mg q.i.d., #120 with 2 additional refills as well as Celebrex 200 mg, #30 with 2 additional refills to her [facility] pharmacy. The patient will return in 3 months as needed for an appointment. <ELECTRONICALLY SIGNED> By: Juliette Ruiz 08/23/19 1614 [id number] Juliette Ruiz /nt
== END ==
LOC: PAIN 06:45
DX: Z76.0 Encounter for issue of repeat prescription (principal); M79.671 Pain in right foot; M79.672 Pain in left foot; G89.4 Chronic pain syndrome; M19.042 Primary osteoarthritis, left hand; M19.041 Primary osteoarthritis, right hand; Z79.891 Long term (current) use of opiate analgesic; Z79.899 Other long term (current) drug therapy

== ENCOUNTER → 2019-11-22 | Outpatient (CLI) | payer OTHER ==
[~2019-11-22] VITALS: Ht 165.1 cm; Wt 58.2 kg
[2019-11-22 10:44] VITALS: BP 107/51
--- NOTE | 2019-11-22 11:00 | NUR ---
Pain Clinic Assessment: 1. History of Osteoarthritis: HANDS History of Rheumatoid Arthritis: Not Applicable 2. Height: 5 ft. 5 in. 165.1 cm. Weight: 128.4 lb. oz. 58.242 kg. Patient's BMI: 21.4 3. Vital Signs: BP: 107/51 Pulse: 74 Resp: 14 Temp: 02 Sat: 100 ECG Mon: 4. Pain Intensity: 7 5. Fall Risk: Dizziness: N Needs help standing or walking: N Fallen in the last 3 months: N Fall risk comments: 6. Patient on Blood Thinner: None 7. History of Hypertension: N 8. Opioid Therapy greater than 6 weeks: Y Opiate Contract Signed: 09/08/17 9. Risk Assessment Tool Provided: MOD 10. Functional Assessment Tool: 11. Recreational Drug Use: Never Drug Type: Tobacco Use: Never Smoker Tobacco Type: Amount or Packs/day: How Many Years: Alcohol Use: Yes Frequency: Quant:
--- NOTE | 2019-11-22 15:56 | HPC ---
[facility] [place] [address] PAIN MANAGEMENT CONSULTATION Name: ANNEMARIE BARDALES Room #: REG Lewis Hooper.#: [id number] Admission: 11/22/19 Attend Phys: Juliette Ruiz Discharge: Date of : 56 Report #: [id number] THIS REPORT FOR: cc: Annemaire Bucio DNP, Mary E. DNP Hocker, Amanda CNS ~ CC: Wolfgang Miller MD DATE OF SERVICE: 11/22/2019 CHIEF COMPLAINT: Chronic intractable bilateral foot pain. HISTORY OF PRESENT ILLNESS: As you know, this is a very pleasant 59-year-old female who returns to the pain clinic today for a refill of her opioid medications. 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 She therefore reports her pain score as 7/10. She says she tries to do what Dr. Miller says, a standing activity then followed by a sitting activity that does alleviate some of her pain if she remembers to do that. Often she states she just wants to keep working and then pays for it later. Today, she is reporting she denies any problems with constipation or daytime sleepiness as a result of her medications for the pain that is located in her bilateral feet. ALLERGIES: TETRACYCLINE. CURRENT LIST OF MEDICATIONS: Gabapentin 600 mg q.i.d., Celebrex 200 mg daily. Methadone 5 mg t.i.d., 1 in the morning, 1 midday, 2 at night. Hydrocodone p.r.n., omeprazole, alprazolam, and Synthroid. PATIENT'S PQRS: 1. She has osteoarthritis in her hands. Denies any rheumatoid arthritis. 2. Height is 5 feet 5 inches, weight is 128, BMI is 21. 3. Vital signs 107/51, pulse is 74, respirations 14, oxygen sat is 100. 4. Pain score is 7/10. 5. Denies dizziness, does not need help walking or standing, has not fallen in the last 3 months. 6. The patient is not on any blood thinners or medicine for hypertension. Her opioid therapy is greater than 6 weeks; therefore, an opioid signed contract is on the chart. Risk assessment is moderate. Functional assessment is 18/70. 7. Recreational drug use, she denies. She is not a smoker and does occasionally drink alcohol. According to the prescription monitoring system, the patient is filling [address] [address] PAIN MANAGEMENT CONSULTATION Name: ANNEMARIE BARDALES MANUEL Room #: REG CLLewis Trammell#: [id number] Admission: 11/22/19 Attend Phys: Juliette Ruiz Discharge: Date of : 56 Report #: [id number] appropriately. She is past due to fill her medications today. Her morphine milliequivalent according to the CDC guidelines is 60. We will collect a random drug screen on this patient today to verify her medications. PHYSICAL EXAMINATION: GENERAL: This is a very pleasant and alert 59-year-old female who appears her stated age, placing her pain score at 7/10. She is well developed, well hydrated. Speech is fluent. HEENT: Normocephalic, atraumatic. Extraocular eye muscles are intact. She is wearing a mask. MUSCULOSKELETAL: She has tenderness in her bilateral feet, greater on the right than the left. No swelling or edema noted. Does complain of intense burning. She has an AFO on her foot today. Lower extremity strength judged to be 5/5 in all major muscle groups. She does walk with a slightly antalgic gait. IMPRESSION: 1. Chronic foot pain bilaterally, status post multiple surgeries with peripheral neuropathy. 2. Management of opioid medications under terms of written agreement. We reviewed the fact that opiate medications are being used to provide analgesia adequate to support activities of daily living, not attempting to achieve a specific pain score on the 0-10 Visual Analog Scale. The current opiate medications are providing sufficient analgesia to allow the patient to participate in activities of daily living. The patient is not exhibiting any aberrant behavior suggestive of drug diversion. The patient is not having any adverse reactions to medications. The patient is not suffering from daytime somnolence or mental acuity changes. The patient is managing opiate-induced constipation with appropriate mybe-nxp-vbxiuyh agents and dietary considerations. The patient was counseled on concern for caution with operating a motor vehicle while using opiate medications. PLAN: 1. We discussed treatment options with the patient today. The patient feels that her current regimen is controlling the majority of her pain, though she does have flares, especially when active with her rental houses. We will send her medicines electronically by Dr. Wolfgang Miller today for her methadone 5 mg tablets 1 in the morning, 1 midday, 2 at night; gabapentin 300mg for today, 4 week 8-week release; hydrocodone 5/325, #60 for today for an 8-week release. Celebrex 200 mg, #30 with 2 additional refills and gabapentin 600 mg q.i.d., #120 with 2 additional refills. 2. The patient denies any daytime somnolence or constipation as a result of her medications. 3. We collected a random drug screen on this patient today. [facility] [address] [place] [address] PAIN MANAGEMENT CONSULTATION Name: JEFFYANNEMARIE MANUEL Room #: REG RAJI Trammell#: [id number] Admission: 11/22/19 Attend Phys: Juliette Ruiz Discharge: Date of : 56 Report #: [id number] 4. The patient is seen in collaboration with Dr. Wolfgang Miller. The patient will return in 3 months or as needed. <ELECTRONICALLY SIGNED> By: Juliette Ruiz 11/22/19 1556 [id number] Juliette Ruiz /nt
== END ==
LOC: PAIN 06:42
DX: M79.671 Pain in right foot (principal); M79.672 Pain in left foot; G89.29 Other chronic pain; G62.9 Polyneuropathy, unspecified; Z79.891 Long term (current) use of opiate analgesic

== ENCOUNTER → 2020-02-14 | Outpatient (CLI) | payer OTHER ==
[~2020-02-14] VITALS: Ht 165.1 cm; Wt 57.0 kg
[~2020-02-14] MED LIST changes: +HYDROCODON-ACE1 EAC7 PO
--- NOTE | ~2020-02-14 | HPC ---
[facility] [address] [place] [address] PAIN MANAGEMENT CONSULTATION Name: ANNEMARIE BARDALES Room #: REG GREERLewis Hooper.#: [id number] Admission: 02/14/20 Attend Phys: Wolfgang Miller MD Discharge: Date of : 56 Report #: [id number] THIS REPORT FOR: cc: Annemarie Bucio DNP, Mary E. DNP Morgan, Richard L. MD ~ CC: Annemarie Miller DATE OF SERVICE: 02/14/2020 Followup visit for chronic intractable ankle pain. HISTORY OF PRESENT ILLNESS: The patient is a longstanding patient who has been on an opioid agreement with our clinic dating back to 2013. She is on relative high dose of opioid in combination with gabapentin, but is doing exceptionally well and has been stable on the same dose now for many years. She and I both remember in particular a single visit that occurred approximately 2 years ago when she came in at the end of a rope, frustrated, sad, angry and in significant pain. Medications were inadequate at that time and she was in a crisis. Surgery was not an option and we at that time elected to transition her to methadone and titrate her dose. She has done exceptionally well on a very stable dose of medicine with methadone as a baseline and a couple of hydrocodone 5/325 taken per day for breakthrough. She also uses gabapentin 600 mg 4 times daily taking one and a half tablets twice a day on some occasions and 600 mg at bedtime. This form the basis of her medication management. 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 She has found that she is able to accomplish her day-to-day activities exceptionally well with these medicines and they did not interfere with her ability to think clearly or to do her tasks. Quite the contrary, the pain medications allow her to focus more on her business dealings without pain intensity and she performs at a higher level. She is very grateful for the pain relief and the improvement in her day-to-day function. She takes her medicines on schedule for the baseline and has had no red flag behaviors. I reviewed her prescription drug monitoring program information provided by [facility] and there are no unexpected entries. Her only side effect has been some recent constipation, but we both feel that this is related to the very hot weather and dehydration and I have encouraged her to maintain her hydration levels. I asked her about alprazolam, which is on her medication list. She does not use it on a daily basis. She confided in me that her sister was murdered many years ago and her murder has been in [place], but is out for parole. She has used alprazolam to help with posttraumatic stress and anxiety of that horrible event. We discussed the benzodiazepine and opioid interactions. All medications were reviewed and reconciled from the electronic medical record. [address] [address] PAIN MANAGEMENT CONSULTATION Name: ANNEMARIE BARDALES Room #: REG RAJI Trammell#: [id number] Admission: 02/14/20 Attend Phys: Wolfgang Miller MD Discharge: Date of : 56 Report #: [id number] She uses Celebrex, omeprazole, levothyroxine prescribed by Dr. Bucio. PHYSICAL EXAMINATION: A pleasant 59-year-old, VITAL SIGNS: Blood pressure 101/63, heart rate 69, respirations 14, O2 sat 97%. She is 5 feet 5 inches with a BMI of 20.9. GENERAL: She is pleasant, alert and oriented with no signs of depression, anxiety or overmedication. CHEST: Clear. CARDIAC: Rhythm is regular. MUSCULOSKELETAL: She moves independently from sitting to standing. She ambulates with a mildly antalgic gait. She has a hard AFO on the right foot. Strength is normal. She has some callusing along the outside of her right foot from her daily use of the AFO. IMPRESSION: 1. Chronic intractable bilateral foot pain, status post multiple surgeries. 2. Peripheral neuropathy. 3. Management of opioid medications under terms of written opioid agreement. PLAN: I renewed her medications for her under terms of our agreement. Urine drug screen has been performed and was appropriate for all medications with no unexpected findings. I reviewed that test from 11/21. Followup visit is scheduled in our pain clinic in 3 months. By: [id number] Wolfgang Miller MD /nt
[2020-02-14 09:00] VITALS: BP 100/63
--- NOTE | 2020-02-14 09:10 | NUR ---
Pain Clinic Assessment: 1. History of Osteoarthritis: HANDS History of Rheumatoid Arthritis: DENIES 2. Height: 5 ft. 5 in. 165.1 cm. Weight: 125.6 lb. oz. 56.972 kg. Patient's BMI: 20.9 3. Vital Signs: BP: 100/63 Pulse: 69 Resp: 14 Temp: 02 Sat: 97 ECG Mon: 4. Pain Intensity: 6-7 5. Fall Risk: Dizziness: N Needs help standing or walking: N Fallen in the last 3 months: N Fall risk comments: 6. Patient on Blood Thinner: None 7. History of Hypertension: N 8. Opioid Therapy greater than 6 weeks: Y Opiate Contract Signed: 09/08/17 9. Risk Assessment Tool Provided: 0 low 10. Functional Assessment Tool: 11. Recreational Drug Use: Never Drug Type: Tobacco Use: Never Smoker Tobacco Type: Amount or Packs/day: How Many Years: Alcohol Use: Yes Frequency: Weekly Quant:
== END ==
LOC: PAIN 06:47
PROVIDERS: ATTEND Anesthesiology Pain Medicine
DX: G89.29 Other chronic pain (principal); M79.672 Pain in left foot; M79.671 Pain in right foot; G62.9 Polyneuropathy, unspecified; Z98.890 Other specified postprocedural states; Z68.20 Body mass index [BMI] 20.0-20.9, adult; Z79.891 Long term (current) use of opiate analgesic; Z79.899 Other long term (current) drug therapy

== ENCOUNTER → 2020-05-12 | Outpatient (CLI) | payer OTHER ==
[~2020-05-12] VITALS: Ht 165.1 cm; Wt 56.5 kg
[2020-05-12 09:10] VITALS: BP 113/65
--- NOTE | 2020-05-12 09:17 | NUR ---
Pain Clinic Assessment: 1. History of Osteoarthritis: HANDS History of Rheumatoid Arthritis: DENIES 2. Height: 5 ft. 5 in. 165.1 cm. Weight: 124.6 lb. oz. 56.518 kg. Patient's BMI: 20.7 3. Vital Signs: BP: 113/65 Pulse: 77 Resp: 14 Temp: 02 Sat: 97 ECG Mon: 4. Pain Intensity: 6 5. Fall Risk: Dizziness: N Needs help standing or walking: N Fallen in the last 3 months: N Fall risk comments: 6. Patient on Blood Thinner: None 7. History of Hypertension: N 8. Opioid Therapy greater than 6 weeks: Y Opiate Contract Signed: 09/08/17 9. Risk Assessment Tool Provided: 0 low 10. Functional Assessment Tool: 11. Recreational Drug Use: Never Drug Type: Tobacco Use: Never Smoker Tobacco Type: Amount or Packs/day: How Many Years: Alcohol Use: Yes Frequency: Quant:
--- NOTE | 2020-05-12 14:13 | HPC ---
[facility] [address] [place] [address] PAIN MANAGEMENT CONSULTATION Name: ANNEMARIE BARDALES Room #: REG Lewis Hooper.#: [id number] Admission: 05/12/20 Attend Phys: Juliette Ruiz Discharge: Date of : 56 Report #: [id number] THIS REPORT FOR: cc: Annemarie Bucio DNP, Mary E. DNP Hocker, Amanda CNS ~ CC: Wolfgang Miller MD DATE OF SERVICE: 05/12/2020 CHIEF COMPLAINT: Chronic intractable ankle pain. HISTORY OF PRESENT ILLNESS: This is a very pleasant 59-year-old, a longstanding patient of the pain clinic, who returns today for refills of her medication. Today, she is reporting increased pain in her right ankle and bilateral feet. She attributes this to increasing driving. She has been traveling back and forth from [place], [place] to home taking care of her father who is currently on hospice and is needing assistance from the family. This has been requiring her to drive quite a bit as well as be more active, which has been increasing her pain. She does state it is an increased burning sensation on the top of her foot, especially with walking and movement. She does feel that the medications are beneficial and does have very minimal side effects as a result of them. 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 Today, she is requesting refills of her medications. ALLERGIES: TETRACYCLINE. CURRENT LIST OF MEDICATIONS: Methadone 5 mg, 112; hydrocodone 5/325 b.i.d. p.r.n.; gabapentin 600 mg 4 times a day; Celebrex 200 mg daily; omeprazole; alprazolam p.r.n., and levothyroxine. PQRS: 1. She has a history of osteoarthritis in her hands bilaterally in her feet. Denies any rheumatoid arthritis. 2. Height is 5 feet 5 inches, weight is 124, BMI is 20. Vital signs 113/65, pulse is 77, respirations 14, oxygen sat is 97%. Pain score is 6/10. 3. Fall risk. Denies dizziness, does not need help walking or standing, has not fallen in the last 3 months. The patient is not on any blood thinners or medicine for hypertension. Opioid therapy is greater than 6 weeks; therefore, an opioid signed contract is on the chart. Risk assessment is low. Functional assessment is 36/70. 4. Recreational drug use, she denies. She is not a smoker and [place] [address] PAIN MANAGEMENT CONSULTATION Name: ANNEMARIE BARDALES Room #: REG Lewis Trammell#: [id number] Admission: 05/12/20 Attend Phys: Juliette Ruiz Discharge: Date of : 56 Report #: [id number] According to the prescription monitoring system, she is filling in a timely fashion only from Dr. Miller. She does take an occasional alprazolam that has not filled that in the last 3 months according to the PDMP, her morphine mEq is 75 MME per day. PHYSICAL EXAMINATION: GENERAL: This is alert and orientated, very pleasant 59-year-old female who appears younger than her stated age, rating her pain score today at 6/10. HEENT: Normocephalic, atraumatic. Extraocular eye muscles are intact. She is wearing a mask. MUSCULOSKELETAL: She moves from sitting to standing position and has a mildly antalgic gait. She is wearing her AFO on her right foot and has increased burning in the top of her foot, 1+ edema noted today. IMPRESSION: 1. Chronic intractable bilateral foot pain, status post multiple surgeries. 2. Peripheral neuropathy. 3. Management of opioid medications under terms of written agreement. We reviewed the fact that opiate medications are being used to provide analgesia adequate to support activities of daily living, not attempting to achieve a specific pain score on the 0-10 Visual Analog Scale. The current opiate medications are providing sufficient analgesia to allow the patient to participate in activities of daily living. The patient is not exhibiting any aberrant behavior suggestive of drug diversion. The patient is not having any adverse reactions to medications. The patient is not suffering from daytime somnolence or mental acuity changes. The patient is managing opiate-induced constipation with appropriate litn-cbm-yeuicaw agents and dietary considerations. The patient was counseled on concern for caution with operating a motor vehicle while using opiate medications. PLAN: We discussed treatment options with the patient today. We continue her on her current medications. We did discuss possible ways to have her foot in the car when she is using the cruise, driving from back and forth from [place]. The patient states that she will attempt this and may be hard since she does have AFO that she wears at all times on her right foot. Scripts will be sent electronically by Dr. Wolfgang Miller for her hydrocodone 5/325, #60; methadone 5 mg, #120 for 3 months as well as gabapentin 600 mg, #120 with 2 refills and Celebrex 200 mg, #30 with 2 refills. The patient will return in 3 months for refills. <ELECTRONICALLY SIGNED> By: Juliette Ruiz 05/12/20 1413 1020 1140 Juliette Ruiz /jonathan
== END ==
LOC: PAIN 06:48
PROVIDERS: ATTEND Clinical Nurse Specialist Adult Health
DX: M25.571 Pain in right ankle and joints of right foot (principal); M79.671 Pain in right foot; M79.672 Pain in left foot; G62.9 Polyneuropathy, unspecified; F11.20 Opioid dependence, uncomplicated; Z88.8 Allergy status to other drugs, medicaments and biological substances; Z79.899 Other long term (current) drug therapy

== ENCOUNTER → 2020-08-07 | Outpatient (CLI) | payer OTHER ==
[~2020-08-07] VITALS: Ht 165.1 cm; Wt 57.2 kg
[2020-08-07 09:04] VITALS: BP 102/53
--- NOTE | 2020-08-07 09:08 | NUR ---
Pain Clinic Assessment: 1. History of Osteoarthritis: FEET SOME IN HANDS History of Rheumatoid Arthritis: DENIES 2. Height: 5 ft. 5 in. 165.1 cm. Weight: 126.0 lb. oz. 57.153 kg. Patient's BMI: 21.0 3. Vital Signs: BP: 102/53 Pulse: 73 Resp: 16 Temp: 02 Sat: 97 ECG Mon: 4. Pain Intensity: 6 5. Fall Risk: Dizziness: N Needs help standing or walking: N Fallen in the last 3 months: N Fall risk comments: 6. Patient on Blood Thinner: None 7. History of Hypertension: N 8. Opioid Therapy greater than 6 weeks: Y Opiate Contract Signed: 09/08/17 9. Risk Assessment Tool Provided: 0 low 10. Functional Assessment Tool: 11. Recreational Drug Use: Never Drug Type: Tobacco Use: Never Smoker Tobacco Type: Amount or Packs/day: How Many Years: Alcohol Use: Yes Frequency: Weekly Quant: WEEKENDS
== END ==
LOC: PAIN 06:48
PROVIDERS: ATTEND Anesthesiology Pain Medicine
DX: M79.671 Pain in right foot (principal); M79.672 Pain in left foot; G62.9 Polyneuropathy, unspecified; F11.20 Opioid dependence, uncomplicated; Z88.8 Allergy status to other drugs, medicaments and biological substances; Z79.899 Other long term (current) drug therapy

== ENCOUNTER → 2020-10-30 | Outpatient (CLI) | payer OTHER ==
[~2020-10-30] VITALS: Ht 165.1 cm; Wt 57.9 kg
[2020-10-30 09:03] VITALS: BP 113/69
--- NOTE | 2020-10-30 09:11 | NUR ---
Pain Clinic Assessment: 1. History of Osteoarthritis: FEET SOME IN HANDS History of Rheumatoid Arthritis: DENIES 2. Height: 5 ft. 5 in. 165.1 cm. Weight: 127.6 lb. oz. 57.879 kg. Patient's BMI: 21.2 3. Vital Signs: BP: 113/69 Pulse: 72 Resp: 14 Temp: 02 Sat: 97 ECG Mon: 4. Pain Intensity: 5 5. Fall Risk: Dizziness: N Needs help standing or walking: N Fallen in the last 3 months: N Fall risk comments: 6. Patient on Blood Thinner: None 7. History of Hypertension: N 8. Opioid Therapy greater than 6 weeks: Y Opiate Contract Signed: 09/08/17 9. Risk Assessment Tool Provided: 0 low 10. Functional Assessment Tool: 11. Recreational Drug Use: Never Drug Type: Tobacco Use: Never Smoker Tobacco Type: Amount or Packs/day: How Many Years: Alcohol Use: Yes Frequency: Quant:
== END ==
LOC: PAIN 07:05
PROVIDERS: ATTEND Clinical Nurse Specialist Adult Health
DX: M25.571 Pain in right ankle and joints of right foot (principal); M25.572 Pain in left ankle and joints of left foot; G62.9 Polyneuropathy, unspecified; Z79.891 Long term (current) use of opiate analgesic; Z79.899 Other long term (current) drug therapy

== ENCOUNTER → 2021-01-19 | Outpatient (CLI) | payer OTHER ==
[~2021-01-19] VITALS: Ht 165.1 cm; Wt 57.6 kg
[2021-01-19 10:05] VITALS: BP 100/65
--- NOTE | 2021-01-19 10:18 | NUR ---
Pain Clinic Assessment: 1. History of Osteoarthritis: FEET SOME IN HANDS History of Rheumatoid Arthritis: DENIES 2. Height: 5 ft. 5 in. 165.1 cm. Weight: 127.0 lb. oz. 57.607 kg. Patient's BMI: 21.1 3. Vital Signs: BP: 100/65 Pulse: 71 Resp: 14 Temp: 02 Sat: 97 ECG Mon: 4. Pain Intensity: 6 5. Fall Risk: Dizziness: N Needs help standing or walking: N Fallen in the last 3 months: N Fall risk comments: 6. Patient on Blood Thinner: None 7. History of Hypertension: N 8. Opioid Therapy greater than 6 weeks: Y Opiate Contract Signed: 09/08/17 9. Risk Assessment Tool Provided: 4-MOD 10. Functional Assessment Tool: 11. Recreational Drug Use: Never Drug Type: Tobacco Use: Never Smoker Tobacco Type: Amount or Packs/day: How Many Years: Alcohol Use: Yes Frequency: Weekly Quant: 2-3 BEERS
== END ==
LOC: PAIN 06:53
PROVIDERS: ATTEND Clinical Nurse Specialist Adult Health
DX: Z76.0 Encounter for issue of repeat prescription (principal); G89.4 Chronic pain syndrome; M79.672 Pain in left foot; M79.671 Pain in right foot; G62.89 Other specified polyneuropathies; Z79.891 Long term (current) use of opiate analgesic; Z79.899 Other long term (current) drug therapy; Z72.89 Other problems related to lifestyle; Z88.1 Allergy status to other antibiotic agents

== ENCOUNTER → 2021-04-20 | Outpatient (CLI) | payer OTHER ==
[~2021-04-20] VITALS: Ht 165.1 cm; Wt 56.2 kg
[2021-04-20 11:00] VITALS: BP 113/65
--- NOTE | 2021-04-20 14:50 | NUR ---
Pain Clinic Assessment: 1. History of Osteoarthritis: FEET SOME IN HANDS History of Rheumatoid Arthritis: DENIES 2. Height: 5 ft. 5 in. 165.1 cm. Weight: 124.0 lb. oz. 56.246 kg. Patient's BMI: 20.6 3. Vital Signs: BP: 113/65 Pulse: 91 Resp: 16 Temp: 02 Sat: 96 ECG Mon: 4. Pain Intensity: 6 5. Fall Risk: Dizziness: N Needs help standing or walking: N Fallen in the last 3 months: N Fall risk comments: 6. Patient on Blood Thinner: None 7. History of Hypertension: N 8. Opioid Therapy greater than 6 weeks: Y Opiate Contract Signed: 09/08/17 9. Risk Assessment Tool Provided: 4-MOD 10. Functional Assessment Tool: 11. Recreational Drug Use: Never Drug Type: Tobacco Use: Never Smoker Tobacco Type: Amount or Packs/day: How Many Years: Alcohol Use: Yes Frequency: Special Occasions Quant: 1
== END ==
LOC: PAIN 04-18 09:48
PROVIDERS: ATTEND Clinical Nurse Specialist Adult Health
DX: G89.29 Other chronic pain (principal); M79.672 Pain in left foot; G90.09 Other idiopathic peripheral autonomic neuropathy; Z79.899 Other long term (current) drug therapy; Z88.8 Allergy status to other drugs, medicaments and biological substances; Z98.890 Other specified postprocedural states

== ENCOUNTER → 2021-07-13 | Outpatient (CLI) | payer OTHER ==
[~2021-07-13] VITALS: Ht 165.1 cm; Wt 57.6 kg
[2021-07-13 11:13] VITALS: BP 103/62
--- NOTE | 2021-07-13 11:14 | NUR ---
Pain Clinic Assessment: 1. History of Osteoarthritis: FEET SOME IN HANDS History of Rheumatoid Arthritis: DENIES 2. Height: 5 ft. 5 in. 165.1 cm. Weight: 127.0 lb. oz. 57.607 kg. Patient's BMI: 21.1 3. Vital Signs: BP: 103/62 Pulse: 66 Resp: 16 Temp: 02 Sat: 97 ECG Mon: 4. Pain Intensity: 2 5. Fall Risk: Dizziness: N Needs help standing or walking: N Fallen in the last 3 months: N Fall risk comments: 6. Patient on Blood Thinner: None 7. History of Hypertension: N 8. Opioid Therapy greater than 6 weeks: Y Opiate Contract Signed: 09/08/17 9. Risk Assessment Tool Provided: 4-MOD 10. Functional Assessment Tool: 11. Recreational Drug Use: Never Drug Type: Tobacco Use: Never Smoker Tobacco Type: Amount or Packs/day: How Many Years: Alcohol Use: Yes Frequency: Quant:
== END ==
LOC: PAIN 10:46
PROVIDERS: ATTEND Clinical Nurse Specialist Adult Health
DX: G89.29 Other chronic pain (principal); G62.9 Polyneuropathy, unspecified; M79.671 Pain in right foot; M79.672 Pain in left foot; Z79.899 Other long term (current) drug therapy; Z88.8 Allergy status to other drugs, medicaments and biological substances